=== PATIENT | female | born 1985 | race Caucasian/White ===

== ENCOUNTER 2017-12-13 12:25 | Emergency (ER) | payer OTHER ==
[~2017-12-13] VITALS: Ht 160 cm; Wt 68.0 kg
== END 2017-12-13 13:37 | disposition home or self-care (01) ==
LOC: ED 12:25
DX: S81.811A Laceration without foreign body, right lower leg, initial encounter (principal); W26.8XXA Contact with other sharp object(s), not elsewhere classified, initial encounter; Y93.89 Activity, other specified; Y92.89 Other specified places as the place of occurrence of the external cause; Y99.8 Other external cause status